=== PATIENT | female | born 1965 | race Caucasian/White ===

== ENCOUNTER 2017-06-22 12:34 | Emergency (ER) | payer OTHER ==
[~2017-06-22 12:34] MED LIST: Sodium Chloride 0.9% 1,000 ML BAG ONE
[2017-06-22] MEDS ORDERED: Meclizine HCl 25 MG TAB ONE (13:48)
[2017-06-22 14:04] LABS: #Basophils 0.1 thou/uL (0.0-0.2); #Eosinphils 0.2 thou/uL (0.0-0.7); #Lymphocytes 3.1 thou/uL (1.20-3.40); #Monocytes 0.6 thou/uL (0.11-0.59); #Neutrophils 5.1 thou/uL (1.40-6.50); %Basophils 0.6 % (0.0-1.0); %Eosinophils 1.8 % (0.0-10.0); %Neutrophils 56.6 % (42.0-75.0); Hemoglobin 13.4 g/dL (12.0-16.0); Mean Corpuscular HGB CONC 34.4 g/dL (32.0-36.0); Mean Corpuscular Hemoglobin 33.4 pg (27.0-31.0); Mean Corpuscular Volume 97.2 fl (81.0-99.0); Mean Platelet Volume 8.2 fL (7.4-10.4); Platelet Count 268 thou/uL (130-400); RBC Distribution Width 11.9 % (11.5-14.5); Red Blood Cell (RBC) Count 3.99 mill/uL (4.20-5.40); White Blood Cell (WBC) Count 9.1 thou/uL (4.8-10.8)
[2017-06-22 14:13] LABS: PTT 28.6 SEC (22.9-36.1); Prothrombin Time 12.9 SEC (12.0-14.7)
[2017-06-22] MEDS ORDERED: Ondansetron HCl/PF 4 MG/2 ML Vial ONE (14:15)
[2017-06-22 14:24] LABS: ALT (SGPT) 37 U/L (8-55); AST (SGOT) 20 U/L (5-34); Albumin 4.3 g/dL (3.5-5.0); Alkaline Phosphatase 115 U/L (40-150); Anion Gap 14 mmol/L (10-20); BUN (Urea Nitrogen) 14 mg/dL (7.0-18.7); Bilirubin, Total 0.3 mg/dL (0.2-1.2); CK (CPK) 89 U/L (29-168); Calc. Creatinine Clearance 0 mL/min (70-130); Calcium 9.3 mg/dL (7.8-10.44); Carbon Dioxide 25 mmol/L (22-29); Chloride 109 mmol/L (98-107); Estimated GFR-MDRD 89; Globulin 3.1 g/dL (2.4-3.5); Glucose 93 mg/dL (70-105); Magnesium 2.1 mg/dL (1.6-2.6); Protein, Total 7.4 g/dL (6.0-8.3); Sodium 144 mmol/L (136-145)
[2017-06-22 14:25] LABS: CKMB 0.6 ng/mL (0-6.6); Troponin I Less than 0.010 ng/mL (< 0.028)
--- NOTE | 2017-06-22 14:58 | CT ---
NONCONTRAST HEAD CT: Date: 06/22/17 HISTORY: Dizziness, starting today. COMPARISON: None. TECHNIQUE: A noncontrast head CT is performed from the skull base to the skull vertex. FINDINGS: No parenchymal hemorrhage or extra-axial hematoma. No midline shift. Basilar cisterns are patent. Br ain volume is age-appropriate. Cortical peña-white matter differentiation is preserved. Ventricles a nd sulci are patent and symmetric. Calvarium is intact. Adequate aeration of the sinuses and mastoid air cells. IMPRESSION: No acute intracranial process. POS: [facility]
--- NOTE | 2017-06-22 15:18 | RAD ---
1 VIEW CHEST: Date: 06/22/17 HISTORY: Dizziness. COMPARISON: 11/03/14. FINDINGS: Normal cardiac silhouette. Lungs and pleural spaces are clear. No pneumothorax. No osseous abnormali ties. IMPRESSION: No acute cardiopulmonary process. POS: [facility]
[2017-06-22 15:56] LABS: Bilirubin Negative (Negative); Blood, Urine Negative (Negative); Clarity Clear (Clear); Glucose, Urine (Dipstick) Negative (Negative); Leukocyte Negative (Negative); Nitrite Negative (Negative); Protein, Urine (Dipstick) Negative (Neg-Trace); Specific Gravity, Urine 1.015 (1.005-1.030); Urobilinogen 0.2 mg/dL (0.2-1.0); pH, Urine 5.5 (5.0-9.0)
[2017-06-22 16:02] LABS: Bacteria/HPF Rare-Few HPF (None Seen); RBC/HPF 0-3 HPF (0-3); Squamous Epithelial 0-3 HPF (0-3); WBC/HPF 0-3 HPF (0-3)
== END 2017-06-22 16:12 | disposition home or self-care (01) ==
LOC: MADERS 12:34
DX: R42 Dizziness and giddiness (principal)
CPT/HCPCS: 70450; 71010; 80053; 81001; 82553; 83735; 83880; 84443; 84484; 85025; 85610; 85730; 87086; 93005; 94760; 96360; 96361; J2405; J7050

== ENCOUNTER 2018-02-21 17:10 | Outpatient (CLI) | payer OTHER ==
--- NOTE | 2018-02-21 19:41 | CT ---
CT ABDOMEN AND PELVIS WITHOUT CONTRAST: 02/21/18 Multiple axial tomograms obtained to the abdomen and pelvis without IV enhancement. INDICATIONS: Left flank pain. History of nephrolithiasis. FINDINGS: Lung bases are clear. The liver, spleen, pancreas unremarkable. Adrenal glands are normal. There is moderate left hydronephrosis and left hydroureter. There is an obstructing calculus in the d istal left ureter measuring 7 to 8 mm. There are at least four nonobstructing calculi in the upper collecting structures of the right kidney . The largest is in the lower pole collecting structures measuring up to 1.5 cm. The other calculi ra nge in the 2 to 4 mm range. Bowel loops unremarkable. Aorta normal caliber. No other significant abnormality seen. IMPRESSION: 1. Moderate left hydronephrosis and left hydroureter. An obstructing calculus in the distal left ureter as described above. 2. Nonobstructing calculi in the upper collecting structures of the right kidney as described ab ove. POS: [facility]
== END 2018-02-21 17:11 | disposition home or self-care (01) ==
LOC: MADCT 17:10
PROVIDERS: ATTEND Family Medicine
DX: N13.2 Hydronephrosis with renal and ureteral calculous obstruction (principal)
CPT/HCPCS: 74176

== ENCOUNTER 2018-06-03 07:32 | Emergency (ER) | payer OTHER ==
[2018-06-03] MEDS ORDERED: Ketorolac Tromethamine 30 MG/ML VIAL ONE (07:36)
[2018-06-03] MEDS ORDERED: Ondansetron HCl/PF 4 MG/2 ML Vial ONE (07:36)
[2018-06-03 07:51] LABS: #Basophils 0.2 thou/uL (0.0-0.2); #Eosinphils 0.2 thou/uL (0.0-0.7); #Lymphocytes 3.2 thou/uL (1.20-3.40); #Monocytes 0.6 thou/uL (0.11-0.59); #Neutrophils 3.8 thou/uL (1.40-6.50); %Basophils 2.5 % (0.0-1.0); %Eosinophils 2.1 % (0.0-10.0); %Lymphocytes 40.2 % (21.0-51.0); %Monocytes 7.6 % (0.0-10.0); %Neutrophils 47.6 % (42.0-75.0); Mean Corpuscular HGB CONC 33.8 g/dL (32.0-36.0); Mean Corpuscular Hemoglobin 32.1 pg (27.0-31.0); Mean Corpuscular Volume 94.8 fL (78.0-98.0); Platelet Count 262 thou/uL (130-400); RBC Distribution Width 11.7 % (11.5-14.5); Red Blood Cell (RBC) Count 3.75 mill/uL (4.20-5.40)
[2018-06-03 08:10] LABS: ALT (SGPT) 15 U/L (8-55); AST (SGOT) 16 U/L (5-34); Albumin 4.1 g/dL (3.5-5.0); Alkaline Phosphatase 89 U/L (40-150); Anion Gap 15 mmol/L (10-20); BUN (Urea Nitrogen) 15 mg/dL (9.8-20.1); Bilirubin, Total 0.5 mg/dL (0.2-1.2); Calc. Creatinine Clearance 0 mL/min (70-130); Calcium 9.1 mg/dL (7.8-10.44); Carbon Dioxide 19 mmol/L (22-29); Chloride 113 mmol/L (98-107); Estimated GFR-MDRD 75; Globulin 2.7 g/dL (2.4-3.5); Glucose 110 mg/dL (70-105); Potassium 3.6 mmol/L (3.5-5.1); Protein, Total 6.8 g/dL (6.0-8.3); Sodium 143 mmol/L (136-145)
[2018-06-03] MEDS ORDERED: Morphine 10 MG/ML VIAL ONE (08:49)
--- NOTE | 2018-06-03 09:04 | CT ---
CT OF ABDOMEN AND PELVIS PERFORMED WITHOUT CONTRAST ENHANCEMENT: History: Right flank pain. FINDINGS: The lung bases are clear. The liver, spleen, pancreas, and gallbladder regions are unremarkable. Right and left adrenal glands and right and left kidneys are normal in size. There are several small approximately 4 mm right renal calculi and a larger calculus at the right ureteropelvic junction that measures 14 mm in maximum dimension that is causing some mild right sided hydronephrosis. The ureter distal to this level is nondilated and there are no additional ureteral calculi seen. No left sided ureteral calculus is visualized. There is no significant periaortic or mesenteric lymphadenopathy. CT OF PELVIS PERFORMED WITHOUT CONTRAST ENHANCEMENT: There is no evidence of adenopathy, mass, or free fluid. No inflammatory change in the region of the appendix. There is some calcification in this region which could indicate previous appendectomy. IMPRESSION: Several small right sided renal calculi with the larger 14 mm right ureteral pelvic junction calculus causing some mild to moderate right sided hydronephrosis. POS: [facility]
[2018-06-03 09:07] LABS: Bilirubin Negative (Negative); Blood, Urine Large (Negative); Clarity Clear (Clear); Glucose, Urine (Dipstick) Negative (Negative); Leukocyte Negative (Negative); Nitrite Negative (Negative); Protein, Urine (Dipstick) 30 mg/dL (Neg-Trace); Urobilinogen 0.2 mg/dL (0.2-1.0)
[2018-06-03 09:08] LABS: Bacteria/HPF Rare-Few HPF (None Seen); RBC/HPF GREATER THAN 50-TNTC HPF (0-3); Squamous Epithelial 0-3 HPF (0-3); WBC/HPF 0-3 HPF (0-3)
[2018-06-03] MEDS ORDERED: Fentanyl 100 MCG/2 ML VIAL ONE (10:45)
[2018-06-03] MEDS ORDERED: cefTRIAXone\\ROCEPHIN 1 GM VIAL ONE (11:05)
[2018-06-03] MEDS ORDERED: Sodium Chloride 0.9% 100 ML ONE (11:05)
== END 2018-06-03 09:45 | disposition admitted as inpatient to this hospital (09) ==
LOC: MADERS 07:32
DX: N13.2 Hydronephrosis with renal and ureteral calculous obstruction (principal); F17.210 Nicotine dependence, cigarettes, uncomplicated
CPT/HCPCS: 36415; 74176; 80053; 81003; 81015; 85025; 87086; 96361; 96374; 96375; J0696; J1885; J2270; J2405; J3010; J7050

== ENCOUNTER 2021-03-01 18:51 | Outpatient (CLI) | payer OTHER | END 2021-03-01 18:52 | disposition home or self-care (01) | LOC: MADCT 18:51 | PROVIDERS: ATTEND Family Medicine | DX: R10.9 Unspecified abdominal pain (principal); R31.9 Hematuria, unspecified; N20.0 Calculus of kidney; N21.0 Calculus in bladder; Z87.442 Personal history of urinary calculi | CPT/HCPCS: 74176 ==

== ENCOUNTER 2021-07-27 11:24 | Outpatient (CLI) | payer OTHER | END 2021-07-27 11:25 | disposition home or self-care (01) | LOC: MADRAD 11:24 | PROVIDERS: ATTEND Neurological Surgery | DX: M47.26 Other spondylosis with radiculopathy, lumbar region (principal) | CPT/HCPCS: 72120 ==

== ENCOUNTER 2023-05-01 13:59 | Outpatient (CLI) | payer BC | END 2023-05-01 14:00 | disposition home or self-care (01) | LOC: MADRAD 13:59 | PROVIDERS: ATTEND Specialist | DX: M25.511 Pain in right shoulder (principal); M25.552 Pain in left hip ==

== ENCOUNTER 2023-07-25 08:11 | Outpatient (CLI) | payer BC | END 2023-07-25 08:12 | disposition home or self-care (01) | LOC: MADRAD 08:11 | PROVIDERS: ATTEND Orthopaedic Surgery | DX: M54.50 Low back pain, unspecified (principal); M41.9 Scoliosis, unspecified | CPT/HCPCS: 72100 ==

== ENCOUNTER 2024-03-05 07:58 | Outpatient (CLI) | payer BC | END 2024-03-05 07:59 | disposition home or self-care (01) | LOC: MADRAD 07:58 | PROVIDERS: ATTEND Family Medicine | DX: F17.200 Nicotine dependence, unspecified, uncomplicated (principal) | CPT/HCPCS: 71046 ==